=== PATIENT | male | born 1990 | race Caucasian/White ===

== ENCOUNTER 2017-05-17 15:18 | Emergency (ER) | payer MEDICAID, OTHER ==
[~2017-05-17] VITALS: Ht 188 cm; Wt 116.1 kg
[2017-05-17 15:33] VITALS: BP 132/79
[2017-05-17] MEDS ORDERED: DIAZEPAM 5 MG TABLET PO ONE (16:00)
[2017-05-17] MEDS ORDERED: KETOROLAC 30 MG/1 ML IM ONE (16:00)
[2017-05-17] MEDS ORDERED: DIAZEPAM 5 MG TABLET ONE (16:24)
[2017-05-17] MEDS ORDERED: KETOROLAC 30 MG/1 ML ONE (16:25)
== END 2017-05-17 16:47 | disposition home or self-care (01) ==
LOC: ED 16:40
DX: S16.1XXA Strain of muscle, fascia and tendon at neck level, initial encounter (principal); X58.XXXA Exposure to other specified factors, initial encounter; Y93.89 Activity, other specified; Y92.89 Other specified places as the place of occurrence of the external cause; Y99.8 Other external cause status
CPT/HCPCS: 72050; 96372; 99284; J1885

== ENCOUNTER 2018-12-11 14:57 | Emergency (ER) | payer SELFPAY ==
[~2018-12-11] VITALS: Ht 185.4 cm; Wt 129.3 kg
--- NOTE | 2018-12-11 16:11 | NUR ---
DR RAMSAY BS FOR EXAM. PT C/O LUQ PAIN "RIGHT UNDER MY RIBS", PAIN INCREASES W/ DEEP BREATHING. DENIES RECENT ILLNESS. NO PAIN MEDS TAKEN TODAY. LAST ORAL: 1200 TODAY. DENIES N/V, DIARRHEA, CONSTIPATION, URINARY SX. Addendum: 12/11/18 at 1614 by CORWIN DENIES TRAUMA
--- NOTE | 2018-12-11 16:22 | NUR ---
PT REPORT TO SVETLANA ZAMBRANO RN. PT CARE TRANSFERRED.
[2018-12-11] MEDS ORDERED: MAALOX/HYOSCYAMINE/LIDOCAINE 45 ML BTL ONE (16:23)
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
[2018-12-11] MEDS ORDERED: MAALOX/HYOSCYAMINE/LIDOCAINE 45 ML BTL PO ONE (16:30)
[2018-12-11 16:40] LABS: BASOPHILS # (AUTO) 0.03 x10^3/uL (0-0.1); BASOPHILS % (AUTO) 0 % (0-1); EOSINOPHILS # (AUTO) 0.26 x10^3/uL (0-0.4); EOSINOPHILS % (AUTO) 3 % (1-7); LYMPHOCYTES # (AUTO) 2.03 x10^3/uL (1-3.4); LYMPHOCYTES % (AUTO) 21 % (22-44); MD NO; MEAN CORPUSCULAR HEMOGLOBIN 30.5 pg (27.5-34.5); MEAN CORPUSCULAR HGB CONC 34.2 g/dL (33.2-36.2); MEAN CORPUSCULAR VOLUME 89.1 fL (81-97); MEAN PLATELET VOLUME 9.6 fL (7.4-10.4); MONOCYTES # (AUTO) 0.54 x10^3/uL (0.2-0.8); MONOCYTES % (AUTO) 6 % (2-9); NEUTROPHILS # (AUTO) 6.93 x10^3/uL (1.8-6.8); NEUTROPHILS % (AUTO) 71 % (42-75); PLATELET COUNT 279 x10^3/uL (130-400); RED CELL DISTRIBUTION WIDTH 12.4 % (9.4-14.8)
[2018-12-11 17:04] LABS: ALBUMIN 3.9 g/dL (3.4-5.0); ANION GAP 4 mmol/L (5-15); CALCIUM 9.3 mg/dL (8.5-10.1); CHLORIDE 110 mmol/L (98-107)
[2018-12-11 17:09] LABS: ALANINE AMINOTRANSFERASE 28 U/L (12-78); ALKALINE PHOSPHATASE 48 U/L (45-117); BILIRUBIN,TOTAL 0.5 mg/dL (0.2-1.0); CREATININE 1.03 mg/dL (0.7-1.3); TOTAL PROTEIN 7.4 g/dL (6.4-8.2)
--- NOTE | 2018-12-11 17:15 | NUR ---
PT CARE TO BE RESUMED.
[2018-12-11 18:05] VITALS: BP 126/82
== END 2018-12-11 18:07 | disposition home or self-care (01) ==
LOC: ED 18:00
DX: R10.12 Left upper quadrant pain (principal); F17.200 Nicotine dependence, unspecified, uncomplicated
CPT/HCPCS: 36415; 74022; 80053; 83690; 85025; 99284

== ENCOUNTER 2019-08-26 05:05 | Emergency (ER) | payer SELFPAY ==
[~2019-08-26] VITALS: Ht 188 cm; Wt 105.6 kg
[2019-08-26 05:09] VITALS: BP 137/81
== END 2019-08-26 05:46 | disposition home or self-care (01) ==
LOC: ED 05:25
DX: R21 Rash and other nonspecific skin eruption (principal); T63.481A Toxic effect of venom of other arthropod, accidental (unintentional), initial encounter; F17.200 Nicotine dependence, unspecified, uncomplicated; Y92.89 Other specified places as the place of occurrence of the external cause
CPT/HCPCS: 99281

== ENCOUNTER 2020-10-04 17:22 | Emergency (ER) | payer SELFPAY ==
[~2020-10-04] VITALS: Ht 188 cm; Wt 113.8 kg
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
[2020-10-04] MEDS ORDERED: HYDROcodone/APAP 5/325 TABLET PO ONE (18:30)
[2020-10-04] MEDS ORDERED: KETOROLAC 30 MG/1 ML IM ONE (18:30)
[2020-10-04] MEDS ORDERED: HYDROcodone/APAP 5/325 TABLET ONE (18:53)
[2020-10-04] MEDS ORDERED: KETOROLAC 60 MG/2 ML ONE (18:53)
[2020-10-04 18:58] VITALS: BP 133/74
--- NOTE | 2020-10-04 19:01 | NUR ---
PT RESTING IN BED. MEDICATED PER EMAR. NADN. VSS.
--- NOTE | 2020-10-04 19:52 | NUR ---
Patient/Caregiver given discharge instructions and they have confirmed that they understand the instructions. Patient ambulatory with steady gait.
== END 2020-10-04 19:52 | disposition home or self-care (01) ==
LOC: ED 19:38
DX: M77.8 Other enthesopathies, not elsewhere classified (principal); F17.200 Nicotine dependence, unspecified, uncomplicated
CPT/HCPCS: 73080; 96372; 99283; J1885